=== PATIENT | female | born 1985 | race Caucasian/White ===

== ENCOUNTER 2017-04-07 22:03 | Emergency (ER) | payer BC ==
[~2017-04-07] VITALS: Ht 162.6 cm; Wt 62.6 kg
[2017-04-07] MEDS ORDERED: OMEP-125 PO (22:13)
[2017-04-07] MEDS ORDERED: LINA145C PO (22:13)
--- NOTE | 2017-04-07 22:15 | ER Report ---
History and Physical Time Seen By MD: 22:15 Hx. of Stated Complaint: PT REPORTS THAT SHE IS VISITING FROM [place]. DEVELOPED SOB THIS MORNING THAT HAS GOTTEN WORSE. STATES THAT SHE FEELS LIKE HER LUNGS ARE FULL. HPI/ROS CHIEF COMPLAINT: Shortness of breath HISTORY OF PRESENT ILLNESS: This is a 31 year old female. She is having shortness of breath since arriving here in [place] yesterday. Having some scratchy throat as well and mild cough. From [place]. No chest pain. Had injured her legs against a chair last week. Having some pain in upper thigh as well. No fevers or chills. No history of lung disease, heart disease. No history of DVT or PE in the past or family history. REVIEW OF SYSTEMS: Constitutional: As above. Eyes: No vision changes. ENT: No congestion. Cardiovascular: No chest pain. Respiratory: No cough. No shortness of breath. Gastrointestinal: No abdominal pain. No nausea or vomiting. No diarrhea or constipation. Genitourinary: No dysuria. No frequency Musculoskeletal: No back pain. Skin: No rashes. No bruising. Neurological: No numbness. No headache. Allergies: Coded Allergies: Sulfa (Sulfonamide Antibiotics) (Verified Allergy, Mild, HIVES, 04/07/17) Uncoded Allergies: FLUORIDE (Allergy, Mild, HIVES, 04/07/17) Home Meds Reported Medications Linaclotide (LINZESS) 145 Mcg Capsule, 145 MCG PO DAILY, CAPSULE 04/07/17 Omeprazole (OMEPRAZOLE) 20 Mg Capsule.dr, 1 CAP PO BID, CAP 04/07/17 Reviewed Nurses Notes: Yes Constitutional Vital Sign - Last 24 Hours 04/07/17 04/07/17 04/07/17 04/07/17 22:09 22:15 22:30 22:45 Temp 98.1 Pulse 98 104 108 Resp 14 B/P (MAP) 121/84 120/73 (89) Pulse Ox 98 100 95 98 O2 Delivery Room Air 04/07/17 04/07/17 04/07/17 23:00 23:15 23:30 Pulse 94 103 90 B/P (MAP) 107/54 (71) 107/69 (82) Pulse Ox 99 97 95 Physical Exam General Appearance: The patient is alert. No acute distress. Eyes: Pupils are equal, round. No pallor, injection or icterus. ENT: Mucous membranes are moist. Normal oral mucosa. Posterior oropharynx is normal. Neck: Supple and non tender. Respiratory: Lungs are clear to auscultation. Cardiovascular: Regular rate and rhythm. No murmurs, gallops or rubs. Normal capillary refill. No edema. Gastrointestinal: Abdomen is soft and non tender. Nondistended. Normal active bowel sounds. No CVA tenderness. Neurological: Alert and oriented x3. Cranial nerves II through XII show no acute deficits on my exam. No focal neurologic deficits in the extremities. Skin: Warm and dry. Musculoskeletal: Extremities are nontender. Full range of motion. No tenderness in palpation of the cervical, thoracic and lumbar spine. DIFFERENTIAL DIAGNOSIS: After history and physical exam, differential diagnosis was considered for shortness of breath including but not limited to pulmonary infectious process, altitude related shortness of breath, pulmonary embolus and congestive heart failure. Medical Decision Making Data Points Result Diagram: 04/07/174 04/07/174 Laboratory Hematology Test 04/07/17 22:14 04/07/17 22:47 Red Blood Count 4.04 M/uL (4.17-5.56) Mean Corpuscular Volume 90.7 fL (80.0-96.0) Mean Corpuscular Hemoglobin 30.7 pg (26.0-33.0) Mean Corpuscular Hemoglobin Concent 33.8 g/dL (32.0-36.0) Red Cell Distribution Width 12.9 % (11.5-14.5) Mean Platelet Volume 9.6 fL (7.2-11.1) Neutrophils (%) (Auto) 59.9 % (39.4-72.5) Lymphocytes (%) (Auto) 29.7 % (17.6-49.6) Monocytes (%) (Auto) 8.1 % (4.1-12.4) Eosinophils (%) (Auto) 1.1 % (0.4-6.7) Basophils (%) (Auto) 1.2 % (0.3-1.4) Nucleated RBC Relative Count (auto) 0.0 /100WBC Neutrophils # (Auto) 3.2 K/uL (2.0-7.4) Lymphocytes # (Auto) 1.6 K/uL (1.3-3.6) Monocytes # (Auto) 0.4 K/uL (0.3-1.0) Eosinophils # (Auto) 0.1 K/uL (0.0-0.5) Basophils # (Auto) 0.1 K/uL (0.0-0.1) Nucleated RBC Absolute Count (auto) 0.00 K/uL D-Dimer Quantitative (PE/DVT) < 0.27 ug/ml (0-0.50) Sodium Level 140 mmol/L (137-145) Potassium Level 3.6 mmol/L (3.5-5.0) Chloride Level 102 mmol/L (98-107) Carbon Dioxide Level 23 mmol/L (22-31) Blood Urea Nitrogen 18 mg/dl (7-18) Creatinine 0.80 mg/dl (0.52-1.04) Glomerular Filtration Rate Calc > 60.0 Random Glucose 82 mg/dl (75-110) Calcium Level 9.6 mg/dl (8.4-10.2) Total Bilirubin 0.5 mg/dl (0.2-1.3) Aspartate Amino Transf (AST/SGOT) 24 U/L (0-35) Alanine Aminotransferase (ALT/SGPT) 34 U/L (0-56) Alkaline Phosphatase 72 U/L (0-126) Troponin I < 0.012 ng/ml Total Protein 8.9 gm/dl (6.3-8.2) Albumin 4.6 g/dl (3.5-5.0) Influenza Virus Type A (PCR) Negative (NEGATIVE) Influenza Virus Type B (PCR) Negative (NEGATIVE) Chemistry Test 04/07/17 22:14 04/07/17 22:47 White Blood Count 5.3 k/uL (4.5-11.0) Red Blood Count 4.04 M/uL (4.17-5.56) Hemoglobin 12.4 g/dL (12.0-16.0) Hematocrit 36.6 % (34.0-47.0) Mean Corpuscular Volume 90.7 fL (80.0-96.0) Mean Corpuscular Hemoglobin 30.7 pg (26.0-33.0) Mean Corpuscular Hemoglobin Concent 33.8 g/dL (32.0-36.0) Red Cell Distribution Width 12.9 % (11.5-14.5) Platelet Count 189 K/uL (150-450) Mean Platelet Volume 9.6 fL (7.2-11.1) Neutrophils (%) (Auto) 59.9 % (39.4-72.5) Lymphocytes (%) (Auto) 29.7 % (17.6-49.6) Monocytes (%) (Auto) 8.1 % (4.1-12.4) Eosinophils (%) (Auto) 1.1 % (0.4-6.7) Basophils (%) (Auto) 1.2 % (0.3-1.4) Nucleated RBC Relative Count (auto) 0.0 /100WBC Neutrophils # (Auto) 3.2 K/uL (2.0-7.4) Lymphocytes # (Auto) 1.6 K/uL (1.3-3.6) Monocytes # (Auto) 0.4 K/uL (0.3-1.0) Eosinophils # (Auto) 0.1 K/uL (0.0-0.5) Basophils # (Auto) 0.1 K/uL (0.0-0.1) Nucleated RBC Absolute Count (auto) 0.00 K/uL D-Dimer Quantitative (PE/DVT) < 0.27 ug/ml (0-0.50) Glomerular Filtration Rate Calc > 60.0 Calcium Level 9.6 mg/dl (8.4-10.2) Total Bilirubin 0.5 mg/dl (0.2-1.3) Aspartate Amino Transf (AST/SGOT) 24 U/L (0-35) Alanine Aminotransferase (ALT/SGPT) 34 U/L (0-56) Alkaline Phosphatase 72 U/L (0-126) Troponin I < 0.012 ng/ml Total Protein 8.9 gm/dl (6.3-8.2) Albumin 4.6 g/dl (3.5-5.0) Influenza Virus Type A (PCR) Negative (NEGATIVE) Influenza Virus Type B (PCR) Negative (NEGATIVE) Coagulation Test 04/07/17 22:14 D-Dimer Quantitative (PE/DVT) < 0.27 ug/ml EKG/Imaging EKG Interpretation 12 lead EKG: Rhythm: Sinus rhythm with short [place] interval, rate 91 [place]: normal QRS: normal ST segments: normal Imaging CHEST PA AND LAT HISTORY: Shortness of breath. COMPARISON: None. TECHNIQUE: PA and lateral views of the chest. FINDINGS: Pulmonary: Lungs are clear. There is no pneumothorax or pleural effusion. Cardiomediastinal: Cardiac and mediastinal silhouettes are within normal limits. Bones/soft tissues: No acute osseous abnormality. The visible abdomen is normal. IMPRESSION: 1. No acute cardiopulmonary process. Report Dictated By: Belen Steen at 04/07/2017 11:11 PM ED Course/Re-evaluation Clinical Indication for ER IV: IV Access ED Course D-dimer negative. Troponin negative. Other labs unremarkable. Influenza negative. Reviewed all this with the patient. No sign of pulmonary infectious process other than probable new onset viral upper rest or infection but influenza was negative. No evidence of DVT based on negative d-dimer. Same with pulmonary embolism. Could be altitude related illness as well. She is leaving for [place] tomorrow and hopefully with change in elevation this may improve. Unfortunately with the slowly onset of viral upper respiratory symptoms, these may take longer to improve. Discussed using Diamox however the patient is allergic to sulfa which causes hives so we did not use the Diamox. Decision to Disposition Date: Apr 07, 2017 Decision to Disposition Time: 23:56 Depart Departure Latest Vital Signs Vital Signs Date Time Temp Pulse Resp B/P (MAP) Pulse Ox O2 Delivery O2 Flow Rate FiO2 04/07/17 23:30 90 107/69 (82) 95 04/07/17 22:09 98.1 14 Room Air Impression: Primary Impression: Altitude sickness Additional Impression: Viral upper respiratory infection Condition: Improved Disposition: HOME OR SELF-CARE Patient Instructions: [place] Sickness (ED), Upper Respiratory Infection (ED) Additional Instructions: Rest and increase fluid intake. Follow-up with your doctor or return to the ER if symptoms are worsening. Problem Qualifiers Primary Impression: Altitude sickness Encounter type: initial encounter Qualified Codes: T70.29XA - Other effects of high altitude, initial encounter BHAKTI LABOY MD Apr 07, 2017 22:15
[2017-04-07 22:52] LABS: PLATELET COUNT, AUTOMATED 189 K/uL (150-450)
--- NOTE | 2017-04-07 22:55 | EKG ---
FACILITY: [facility] [place]IENT NAME: MARY CARMEN PLUMMER : [id number] MR: [id number] V: [id number] EXAM DATE: ORDERING PHYSICIAN: BHAKTI LABOY TECHNOLOGIST: Test Reason : Blood Pressure : / mmHG Vent. Rate : 091 BPM Atrial Rate : 091 BPM P-R Int : 106 ms QRS Dur : 074 ms QT Int : 364 ms P-R-T Axes : 031 052 048 degrees QTc Int : 447 ms Sinus rhythm with short HI Otherwise normal ECG No previous ECGs available Confirmed by BRADEN CASAREZ ([id number] on 04/08/2017 6:49:34 AM Referred By: Confirmed By:BRADEN CASAREZ
--- NOTE | 2017-04-07 23:15 | RADIOLOGY IMAGING REPORT ---
FACILITY: [facility] - [place] PATIENT NAME: Filomena Proctor : 1985 MR: [id number] V: [id number] EXAM DATE: ORDERING PHYSICIAN: BHAKTI LABOY TECHNOLOGIST: Location: [facility] Patient: Filomena Proctor : 1985 Visit/Account:[id number] Date of Sevice: 04/07/2017 CHEST PA AND LAT HISTORY: Shortness of breath. COMPARISON: None. TECHNIQUE: PA and lateral views of the chest. FINDINGS: Pulmonary: Lungs are clear. There is no pneumothorax or pleural effusion. Cardiomediastinal: Cardiac and mediastinal silhouettes are within normal limits. Bones/soft tissues: No acute osseous abnormality. The visible abdomen is normal. IMPRESSION: 1. No acute cardiopulmonary process. Report Dictated By: Belen Steen at 04/07/2017 11:11 PM Report E-Signed By: Belen Steen at 04/07/2017 11:12 PM WSN:[id number]
[2017-04-07 23:30] VITALS: BP 107/69
== END 2017-04-08 00:03 | disposition home or self-care (01) ==
LOC: ER 22:10
DX: J06.9 Acute upper respiratory infection, unspecified (principal)
CPT/HCPCS: 71046; 82040; 82247; 82310; 82374; 82435; 82565; 82947; 84075; 84132; 84155; 84295; 84450; 84460; 84484; 84520; 85025; 85379; 87502; 93005; 99284